=== PATIENT | male | born 1970 | race Two or more races ===

== ENCOUNTER 2017-05-22 22:58 | Emergency (ER) | payer OTHER ==
[~2017-05-22] VITALS: Ht 165.1 cm; Wt 73.5 kg
[2017-05-22 23:10] VITALS: BP 153/109
== END 2017-05-23 04:08 | disposition home or self-care (01) ==
LOC: ER 22:58
DX: S01.81XA Laceration without foreign body of other part of head, initial encounter (principal); S80.02XA Contusion of left knee, initial encounter; W01.0XXA Fall on same level from slipping, tripping and stumbling without subsequent striking against object, initial encounter; Y93.89 Activity, other specified; Y99.8 Other external cause status; Y92.69 Other specified industrial and construction area as the place of occurrence of the external cause
CPT/HCPCS: 70450; 73562